=== PATIENT | male | born 1980 | race Caucasian/White ===

== ENCOUNTER 2024-12-20 07:35 | Inpatient (IN) | payer BC ==
[~2024-12-20] VITALS: Ht 177.8 cm; Wt 113.4 kg
[2024-12-20] MEDS ORDERED: CEFTRIAXONE /D5W 50ML IVPB **ER PYXIS IV ONE (08:15)
[2024-12-20] MEDS ORDERED: CLINDAMYCIN 600 MG PIGGYBACK**ER OMNI IV ONE (08:15)
[2024-12-20 08:26] LABS: PLATELET COUNT (AUTO) 177 K/uL (152-348); RED BLOOD CELL COUNT(AUTO) 4.99 MIL/uL (4.06-5.63); RED CELL DISTRIBUTION WIDTH 14.4 % (12.1-16.2); WHITE BLOOD COUNT (AUTO) 16.1 K/uL (3.6-10.2)
[2024-12-20] MEDS ORDERED: KETOROLAC TROMETHAMINE 15 MG INJ ONE (08:26)
[2024-12-20] MEDS: KETOROLAC TROMETHAMINE 15 MG INJ IVP ONE (08:37)
[2024-12-20 08:41] LABS: CREATININE 1.1 mg/dL (0.6-1.3); SODIUM SERUM 139 mmol/L (136-145); UREA NITROGEN, BLOOD 14 mg/dL (7-18)
[2024-12-20 08:46] LABS: ASPARTATE AMINOTRANSFERASE 11 U/L (15-37); TOTAL PROTEIN, SERUM 7.3 g/dL (6.4-8.2)
[2024-12-20] MEDS: CLINDAMYCIN PHOSPHATE IV 600 MG in IV DEXTROSE 5% 100 ML IV ONE (09:09)
[2024-12-20 09:16] LABS: *BILIRUBIN,URIN NEGATIVE (NEGATIVE); *BLOOD, URINE NEGATIVE (NEGATIVE); *CLARITY,URINE CLEAR (CLEAR); *COLOR,URINE YELLOW (YELLOW); *KETONES,URINE NEGATIVE (NEGATIVE); *PROTEIN,URINE NEGATIVE (NEGATIVE); *UROBILINOGEN,URINE 1.0 E.U./dl (NORMAL); LEUKOCYTE ESTERASE ,URINE NEGATIVE (NEGATIVE); NITRITE, URINE NEGATIVE (NEGATIVE); UGLUCOSE NEGATIVE (NEGATIVE)
[2024-12-20] MEDS ORDERED: LISI1TAB29 PO (10:09)
[2024-12-20] MEDS ORDERED: QUET100T32 PO (10:09)
[2024-12-20] MEDS ORDERED: OMEP20CA15 PO (10:09)
[2024-12-20] MEDS ORDERED: AMLO10TA59 PO (10:09)
[2024-12-20] MEDS ORDERED: ESCI20TA PO (10:09)
[2024-12-20] MEDS ORDERED: ROPI1TAB6 PO (10:09)
[2024-12-20] MEDS ORDERED: HYDROCODONE/APAP 10-325 MG TABLET PO PRN (11:00)
[2024-12-20 14:13] VITALS: BP 125/64
[2024-12-20] MEDS: IV NS 1000 ML 1,000 ML IV PRN (15:09)
[2024-12-20] MEDS: AMLODIPINE 10 MG TABLET PO SCH (15:23)
[2024-12-20] MEDS: HYDROCHLOROTHIAZIDE 25 MG TABLET PO SCH (15:23)
[2024-12-20] MEDS: LISINOPRIL 20 MG TABLET PO SCH (15:23)
[2024-12-20 16:02] VITALS: BP 127/70; TEMP 97.6; O2SAT 96
[2024-12-20] MEDS: KETOROLAC TROMETHAMINE 15 MG INJ IVP PRN (16:54)
[2024-12-20] MEDS: CLINDAMYCIN PHOSPHATE IV 600 MG in IV DEXTROSE 5% 100 ML IV SCH (17:17)
[2024-12-20 19:00] VITALS: BP 123/66; TEMP 98.3; O2SAT 95
[2024-12-20] MEDS: QUETIAPINE FUMARATE 100 MG TABLET PO SCH (20:32)
[2024-12-20 21:35] VITALS: O2SAT 95
[2024-12-20] MEDS: IPRATROPIUM BROMIDE 0.5 MG/2.5 ML NEBU NEB PRN (21:35)
[2024-12-20] MEDS: ALBUTEROL SULFATE 2.5 MG/3 ML NEBU NEB PRN (21:36)
[2024-12-20 21:45] VITALS: O2SAT 97
[2024-12-21 04:00] VITALS: BP 113/60; TEMP 98.2; O2SAT 97
[2024-12-21 07:18] LABS: PLATELET COUNT (AUTO) 141 K/uL (152-348); RED BLOOD CELL COUNT(AUTO) 4.46 MIL/uL (4.06-5.63); RED CELL DISTRIBUTION WIDTH 14.1 % (12.1-16.2); WHITE BLOOD COUNT (AUTO) 11.7 K/uL (3.6-10.2)
[2024-12-21 07:37] LABS: CREATININE 1.0 mg/dL (0.6-1.3); SODIUM SERUM 140.0 mmol/L (136-145); UREA NITROGEN, BLOOD 17.0 mg/dL (7-18)
[2024-12-21] MEDS: ACETAMINOPHEN 325 MG TABLET PO PRN (08:49)
[2024-12-21] MEDS: ESCITALOPRAM OXALATE 10 MG TABLET PO SCH (08:50)
[2024-12-21] MEDS ORDERED: LISINOPRIL PO SCH (09:00)
[2024-12-21] MEDS ORDERED: HCTZ PO SCH (09:00)
[2024-12-21 10:56] VITALS: BP 160/75; TEMP 98.4; O2SAT 96
[2024-12-21 16:06] VITALS: BP 123/76; TEMP 98.2; O2SAT 97
[2024-12-21 20:00] VITALS: BP 126/69; TEMP 98.3; O2SAT 96
[2024-12-22 05:59] VITALS: BP 122/70; TEMP 98.1; O2SAT 97
[2024-12-22 06:51] LABS: PLATELET COUNT (AUTO) 131 K/uL (152-348); RED BLOOD CELL COUNT(AUTO) 4.59 MIL/uL (4.06-5.63); RED CELL DISTRIBUTION WIDTH 14.4 % (12.1-16.2); WHITE BLOOD COUNT (AUTO) 9.9 K/uL (3.6-10.2)
[2024-12-22 11:00] VITALS: BP 118/88; TEMP 98.1; O2SAT 98
[2024-12-22] MEDS ORDERED: CLIN300C12 PO (11:28)
[2024-12-22] MEDS ORDERED: TRAM50TA2 PO (11:28)
[2024-12-22] MEDS ORDERED: KETO10TA2 PO (11:40)
== END 2024-12-22 14:15 | disposition other institution (70) | DRG 603 ==
LOC: ER 07:35 → MEDSURG3 14:38
PROVIDERS: ADMIT Nurse Practitioner Acute Care; ATTEND Nurse Practitioner Acute Care
DX: L03.317 Cellulitis of buttock (principal); I50.32 Chronic diastolic (congestive) heart failure; S30.860A Insect bite (nonvenomous) of lower back and pelvis, initial encounter; I11.0 Hypertensive heart disease with heart failure; W57.XXXA Bitten or stung by nonvenomous insect and other nonvenomous arthropods, initial encounter; Y92.099 Unspecified place in other non-institutional residence as the place of occurrence of the external cause; F15.11 Other stimulant abuse, in remission; E66.9 Obesity, unspecified; Z68.34 Body mass index [BMI] 34.0-34.9, adult; Z88.0 Allergy status to penicillin; Z88.2 Allergy status to sulfonamides
CPT/HCPCS: 36415; 71045; 76705; 83605; 83735; 84100; 84484; 85025; 85730; 87040; 87086; 94640; 94760; A4606; A4663; G0378; J0696; J1885; J3490; J3590; J7040